=== PATIENT | male | born 1985 | race Caucasian/White ===

== ENCOUNTER 2018-02-01 08:00 | Inpatient (IN) | payer OTHER, SELFPAY ==
[2018-02-01 08:19] LABS: #Basophils 0.1 thou/uL (0.0-0.2); #Eosinphils 0.2 thou/uL (0.0-0.7); #Lymphocytes 2.2 thou/uL (1.20-3.40); #Monocytes 0.7 thou/uL (0.11-0.59); %Basophils 0.6 % (0.0-1.0); %Eosinophils 1.2 % (0.0-10.0); %Lymphocytes 11.6 % (21.0-51.0); %Monocytes 3.8 % (0.0-10.0); %Neutrophils 82.8 % (42.0-75.0); Hemoglobin 16.5 g/dL (14.0-18.0); Mean Corpuscular HGB CONC 35.2 g/dL (32.0-36.0); Mean Corpuscular Hemoglobin 33.1 pg (27.0-31.0); Mean Corpuscular Volume 94.1 fl (80.0-94.0); Mean Platelet Volume 7.4 fL (7.4-10.4); Platelet Count 333 thou/uL (130-400); RBC Distribution Width 11.6 % (11.5-14.5); Red Blood Cell (RBC) Count 4.99 mill/uL (4.70-6.10); White Blood Cell (WBC) Count 19.3 thou/uL (4.8-10.8)
[2018-02-01 08:28] LABS: PTT 25.8 SEC (22.9-36.1); Prothrombin Time 13.1 SEC (12.0-14.7)
[2018-02-01 08:34] LABS: ALT (SGPT) 50 U/L (8-55); AST (SGOT) 77 U/L (5-34); Albumin 4.1 g/dL (3.5-5.0); Alkaline Phosphatase 73 U/L (40-150); Anion Gap 11 mmol/L (10-20); BUN (Urea Nitrogen) 13 mg/dL (8.9-20.6); Bilirubin, Total 0.7 mg/dL (0.2-1.2); Calc. Creatinine Clearance 0 mL/min (70-130); Calcium 8.9 mg/dL (7.8-10.44); Carbon Dioxide 22 mmol/L (22-29); Chloride 108 mmol/L (98-107); Estimated GFR-MDRD 86; Globulin 3.1 g/dL (2.4-3.5); Glucose 135 mg/dL (70-105); Potassium 4.4 mmol/L (3.5-5.1); Protein, Total 7.2 g/dL (6.0-8.3); Sodium 137 mmol/L (136-145)
[2018-02-01] MEDS ORDERED: Ketorolac Tromethamine 30 MG/ML VIAL ONE (08:37)
[2018-02-01] MEDS ORDERED: Lidocaine 1% (PF) 30 ML VIAL ONE (08:37)
[2018-02-01 08:40] LABS: Alcohol Less than 10 mg/dL (Less than 10); Lipase 47 U/L (8-78)
[2018-02-01] MEDS ORDERED: Dextrose 5% in Water 1,000 ML IV PRN (08:41)
[2018-02-01] MEDS ORDERED: Dextrose 50% Abboject 50 ML SYRINGE SLOW IVP PRN (08:41)
[2018-02-01] MEDS ORDERED: Ondansetron ODT 4 MG TAB PO PRN (08:41)
[2018-02-01] MEDS ORDERED: Ondansetron HCl/PF 4 MG/2 ML Vial IVP PRN (08:41)
[2018-02-01] MEDS ORDERED: Rib Fracture Protocol PO SCH (08:45)
[2018-02-01] MEDS ORDERED: Fentanyl 100 MCG/2 ML VIAL ONE (08:51)
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
[2018-02-01] MEDS ORDERED: Acetaminophen 500 MG TAB ONE (10:00)
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
[2018-02-01] MEDS ORDERED: Adacel (T-DAP) 0.5 ML VIAL ONE (11:38)
[2018-02-01] MEDS ORDERED: ISOVUE-370 76%-LOCM 1 ML ONE (11:56)
[2018-02-01 12:14] LABS: Hemoglobin 15.1 g/dL (14.0-18.0)
[2018-02-01 14:47] VITALS: BMI 24.8
[2018-02-01] MEDS: Sodium Chloride 0.9% 1,000 ML IV SCH ×3 (15:08→22:16)
[2018-02-01] MEDS: Acetaminophen 500 MG TAB PO SCH ×2 (15:10→17:16)
[2018-02-01] MEDS: traMADol HCl 50 MG TAB PO SCH ×2 (15:11→17:17)
[2018-02-01] MEDS: Cyclobenzaprine 10 MG TAB PO PRN (15:22)
[2018-02-01] MEDS: Ibuprofen 800 MG TAB PO SCH ×2 (15:22→22:17)
[2018-02-01] MEDS: Gabapentin 300 MG CAP PO SCH ×2 (15:22→22:17)
[2018-02-01] MEDS ORDERED: Morphine 4 MG/ML VIAL ONE (15:43)
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
[2018-02-01 19:54] LABS: Hemoglobin 13.8 g/dL (14.0-18.0)
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
[2018-02-01] MEDS ORDERED: Sodium Chloride 0.9% 500 ML IV PRN (22:55)
[2018-02-02] MEDS: Acetaminophen 500 MG TAB PO SCH ×4 (00:13→17:44)
[2018-02-02] MEDS: traMADol HCl 50 MG TAB PO SCH ×4 (00:13→17:44)
[2018-02-02 05:32] LABS: #Eosinphils 0.1 thou/uL (0.0-0.7); #Lymphocytes 1.7 thou/uL (1.20-3.40); #Monocytes 0.7 thou/uL (0.11-0.59); #Neutrophils 4.8 thou/uL (1.40-6.50); %Basophils 0.2 % (0.0-1.0); %Eosinophils 1.2 % (0.0-10.0); %Lymphocytes 22.9 % (21.0-51.0); %Neutrophils 65.7 % (42.0-75.0); Hemoglobin 12.8 g/dL (14.0-18.0); Mean Corpuscular HGB CONC 34.7 g/dL (32.0-36.0); Mean Corpuscular Hemoglobin 32.9 pg (27.0-31.0); Mean Corpuscular Volume 94.9 fl (80.0-94.0); Mean Platelet Volume 7.2 fL (7.4-10.4); Platelet Count 205 thou/uL (130-400); RBC Distribution Width 11.5 % (11.5-14.5); Red Blood Cell (RBC) Count 3.89 mill/uL (4.70-6.10); White Blood Cell (WBC) Count 7.3 thou/uL (4.8-10.8)
[2018-02-02] MEDS: Ibuprofen 800 MG TAB PO SCH ×3 (05:59→20:54)
[2018-02-02] MEDS: Cyclobenzaprine 10 MG TAB PO PRN ×2 (05:59→12:58)
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
[2018-02-02] MEDS: Gabapentin 300 MG CAP PO SCH ×3 (09:54→20:55)
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
[2018-02-03] MEDS: Acetaminophen 500 MG TAB PO SCH ×3 (00:05→12:21)
[2018-02-03] MEDS: traMADol HCl 50 MG TAB PO SCH ×3 (00:08→12:21)
[2018-02-03] MEDS: Ibuprofen 800 MG TAB PO SCH ×2 (05:24→15:30)
--- NOTE | 2018-02-03 08:16 | RAD ---
PORTABLE CHEST 1 VIEW: Date: 02/03/18 Time: 0614 hours HISTORY: Pneumothorax. FINDINGS: Comparison made with exam from previous day. Right-sided chest tube remains in place. No definite pneumothorax is seen. The heart size is normal. Patchy bibasilar parenchymal changes are again noted. IMPRESSION: Stable exam. POS: [facility]
[2018-02-03] MEDS: Gabapentin 300 MG CAP PO SCH ×2 (08:40→15:30)
--- NOTE | 2018-02-03 14:57 | RAD ---
PORTABLE CHEST ONE VIEW: 02/03/2018 1:14 p.m. HISTORY: Chest tube removal. COMPARISON: Exam done earlier today, at 6:14 a.m. FINDINGS: There has been interval removal of the right-sided chest tube. No definite pneumothorax is seen. POS: [facility]
[2018-02-03 16:03] VITALS: BP 114/75; TEMP 98.1
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
== END 2018-02-03 16:42 | disposition home or self-care (01) | DRG 964 ==
LOC: ERS 08:00 → SURG B 12:07
PROVIDERS: ADMIT Surgery; ATTEND Surgery
PROC: 0W9930Z Drainage of Right Pleural Cavity with Drainage Device, Percutaneous Approach (ICD-10-PCS; principal; 2018-02-01)
DX: S27.0XXA Traumatic pneumothorax, initial encounter (principal); S32.401A Unspecified fracture of right acetabulum, initial encounter for closed fracture; S32.009A Unspecified fracture of unspecified lumbar vertebra, initial encounter for closed fracture; S36.031A Moderate laceration of spleen, initial encounter; S06.890A Other specified intracranial injury without loss of consciousness, initial encounter; V49.50XA Passenger injured in collision with unspecified motor vehicles in traffic accident, initial encounter; Y92.410 Unspecified street and highway as the place of occurrence of the external cause; F17.210 Nicotine dependence, cigarettes, uncomplicated; R40.2412 Glasgow coma scale score 13-15, at arrival to emergency department
CPT/HCPCS: 32551; 36415; 70450; 71045; 71260; 72125; 72190; 74177; 80053; 80307; 82150; 83690; 85025; 85610; 85730; 86850; 86900; 86901; 90471; 90715; 96361; 96374; 96375; 96376; G0390; G8978-GP-CI; G8979-GP-CI; J1885; J2001; J2270; J3010; J7620

== ENCOUNTER 2019-06-01 11:11 | Emergency (ER) | payer SELFPAY ==
[2019-06-01] MEDS ORDERED: Lidocaine 4% Cream 5 GM TUBE w/ Tegaderm ONE ×2 (11:45→11:46)
[2019-06-01] MEDS ORDERED: Lidocaine 1% PF 5 ML VIAL ONE (12:18)
[2019-06-01] MEDS ORDERED: Acetaminophen 500 MG TAB ONE (12:18)
== END 2019-06-01 13:17 | disposition home or self-care (01) ==
LOC: ERS 11:11
DX: S51.812A Laceration without foreign body of left forearm, initial encounter (principal); F17.210 Nicotine dependence, cigarettes, uncomplicated; W29.3XXA Contact with powered garden and outdoor hand tools and machinery, initial encounter
CPT/HCPCS: 12002; J2001

== ENCOUNTER 2019-06-11 14:13 | Emergency (ER) | payer SELFPAY | END 2019-06-11 15:20 | disposition home or self-care (01) | LOC: ERS 14:13 | DX: L03.114 Cellulitis of left upper limb (principal); S51.812D Laceration without foreign body of left forearm, subsequent encounter; Z71.6 Tobacco abuse counseling; F17.210 Nicotine dependence, cigarettes, uncomplicated | CPT/HCPCS: 99406 ==